=== PATIENT | female | born 1960 | race Caucasian/White ===

== ENCOUNTER 2020-08-24 16:57 | Emergency (ER) | payer MEDICARE, OTHER ==
[2020-08-24 17:25] VITALS: RESP 16; TEMP 98.3
[2020-08-24] MEDS ORDERED: Acetaminophen-Codeine 300-30mg TAB PO STA (17:50)
--- NOTE | 2020-08-24 19:00 | XR ---
EXAMINATION TYPE: XR knee 4V RT DATE OF EXAM: 08/24/2020 COMPARISON: NONE HISTORY: Pain TECHNIQUE: 4 views FINDINGS: There is mild spurring of the femoral and tibial condyles. I see no fracture nor dislocatio n. There is small knee joint effusion. There is minimal medial joint space narrowing. IMPRESSION: Mild osteoarthritis. No fracture seen.
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
[2020-08-24 20:31] VITALS: BP 139/68; PULSE 77
== END 2020-08-24 20:28 | disposition home or self-care (01) ==
LOC: EC 16:57
DX: S83.91XA Sprain of unspecified site of right knee, initial encounter (principal); M17.11 Unilateral primary osteoarthritis, right knee; H54.62 Unqualified visual loss, left eye, normal vision right eye; F17.200 Nicotine dependence, unspecified, uncomplicated; W01.0XXA Fall on same level from slipping, tripping and stumbling without subsequent striking against object, initial encounter; Y92.002 Bathroom of unspecified non-institutional (private) residence as the place of occurrence of the external cause
CPT/HCPCS: 99284